=== PATIENT | female | born 1965 | race Caucasian/White ===

== ENCOUNTER → 2020-08-31 | Outpatient (CLI) | payer MEDICARE ==
[2020-08-31 13:19] LABS: Anisocytosis Slight; HCT 46.3 % (34.0-46.0); HGB 15.2 gm/dL (11.4-16.0); MCH 31.7 pg (25.0-35.0); MCHC 32.9 g/dL (31.0-37.0); MCV 96.4 fL (80.0-100.0); Macrocytosis Slight; Mean Platelet Volume 7.2; Platelet Count 319 k/uL (150-450); RBC 4.81 m/uL (3.80-5.40); WBC 9.5 k/uL (3.8-10.6)
[2020-08-31 13:28] LABS: Magnesium 1.8 mg/dL (1.6-2.3); Potassium 3.8 mmol/L (3.5-5.1)
== END | disposition home or self-care (01) ==
LOC: LABPAT 08-30 15:35
PROVIDERS: ATTEND Internal Medicine Clinical Cardiac Electrophysiology
DX: Z01.818 Encounter for other preprocedural examination (principal); I48.19 Other persistent atrial fibrillation
CPT/HCPCS: 36415; 80051; 82565; 83735; 84443; 84520; 85027

== ENCOUNTER 2020-09-10 08:22 | Day surgery (SDC) | payer BC, MEDICARE ==
[2020-09-06 11:44] VITALS: BMI 26.6
[~2020-09-10 08:22] MED LIST: LACTATED RINGERS 1,000 ML IV SCH; SODIUM CHLORIDE 0.9% 1,000 ML IV SCH
[2020-09-10 08:54] VITALS: RESP 16; TEMP 97.7
[2020-09-10] MEDS ORDERED: PROPOFOL 10 MG/ML 20 ML VIAL IV ONE (09:32)
--- NOTE | 2020-09-10 10:00 | P.HPCAR ---
History of Present Illness This is Dr. Mendez dictating an H/P on this patient The patient was interviewed and examined IMPRESSION / ASSESSMENT: Symptomatic persistent atrial fibrillation with RVR Dilated left ventricle with global hypokinesis, ejection fraction 40% Congestive heart failure class II RV enlargement 3+ mitral regurgitation and 3+ tricuspid regurgitation Past history of regular alcohol use Current smoker PLAN: Electrical cardioversion after initiating amiodarone 400 mg by mouth daily, oral loading for greater than 4 weeks Continue Xarelto and cardiac medications HPI Patient's main complaint is shortness of breath at rest and with exertion. She is in A. fib with RVR despite increasing the dose of metoprolol She is appropriately anticoagulated with xarelto In the past she's had pericardial and pleural effusions. She is global LV dysfunction ejection fraction 40% She has stopped consuming alcohol ROS: No fever chills or rigors, no cough, phlegm or expectoration, no nausea, vomiting or diarrhea, no hematuria, dysuria, no musculoskeletal complaints, no strokes or seizures, no skin lesions. EXAMINATION: Pulse rate 110 beats a minute, afebrile 97.7F, blood pressure 129/81 mmHg Breath sounds are reduced bilaterally Heart sounds irregular systolic murmur Abdomen soft No lower extremity edema REVIEW OF LABS, ECG & MEDICAL DATA TSH 8.7 Magnesium 1.8 Sodium 137, potassium 3.8, BUN 15, creatinine 0.86 Hemoglobin 15.2 Physical Exam Vitals: Vital Signs Temp Pulse Resp BP Pulse Ox 09/10/20 08:35 97.7 F 110 H 16 129/81 100 Intake and Output 09/09/20 09/10/20 09/10/20 22:59 06:59 14:59 Intake Total 250 Balance 250 Intake: IV 250 Other: Weight 83.2 kg Past Medical History Past Medical History: Atrial Fibrillation, Fibromyalgia, GERD/Reflux, Hypertension, Osteoarthritis (OA) Additional Past Medical History / Comment(s): see Dr Mendez H & P, osteoporosis History of Any Multi-Drug Resistant Organisms: None Reported Past Surgical History: Hysterectomy, Tubal Ligation Past Anesthesia/Blood Transfusion Reactions: Postoperative Nausea & Vomiting (PONV) Smoking Status: Current every day smoker Physical Examination Vital Signs Temp Pulse Resp BP Pulse Ox 09/10/20 08:35 97.7 F 110 H 16 129/81 100 Intake and Output 09/09/20 09/10/20 09/10/20 22:59 06:59 14:59 Intake Total 250 Balance 250 Intake: IV 250 Other: Weight 83.2 kg Results Current Medications Generic Name Dose Route Start Last Admin Trade Name Anna Marie PRN Reason Stop Dose Admin Sodium Chloride 1,000 mls @ 20 mls/hr 09/10/20 05:51 09/10/20 08:45 Saline 0.9% IV 10/10/20 05:52 250 mls .Q24H NAIMA Administration Lactated Ringer's 1,000 mls @ 20 mls/hr 09/10/20 05:51 Lactated Ringers IV 10/10/20 05:52 .Q24H NAIMA Intake and Output 09/09/20 09/10/20 09/10/20 22:59 06:59 14:59 Intake Total 250 Balance 250 Intake: IV 250 Other: Weight 83.2 kg Patient Weight 09/11/20 06:59 Weight 83.2 kg
[2020-09-10 15:36] VITALS: BP 98/63; PULSE 48
--- NOTE | 2020-10-02 17:27 | P.EPPROC ---
- EP Procedure Note Electrophysiology Procedure Note: Procedure Electrical cardioversion on amiodarone Symptomatic persistent atrial fibrillation with RVR Dilated left ventricle with reduced LV systolic function and class II CHF RV enlargement Procedure details Successful electrical cardioversion with him and 60 J biphasic shock to sinus rhythm Plan continue anticoagulation continue oral amiodarone
== END 2020-09-10 11:12 | disposition home or self-care (01) ==
LOC: CATHEP 08:22
PROVIDERS: ATTEND Internal Medicine Clinical Cardiac Electrophysiology
DX: I48.19 Other persistent atrial fibrillation (principal); F17.200 Nicotine dependence, unspecified, uncomplicated; I11.0 Hypertensive heart disease with heart failure
CPT/HCPCS: 92960; J2704